=== PATIENT | female | born 1940 | race Caucasian/White ===

== ENCOUNTER 2017-02-08 11:57 | Emergency (ER) | payer MEDICARE, OTHER ==
[2017-02-08 12:09] VITALS: BP 158/73
--- NOTE | 2017-02-08 12:28 | ERNOTE ---
Integumentary HPI - Narrative Date of Service: 02/08/17 - General Presenting Symptoms: rash Time Seen by Provider: 02/08/17 12:14 Source: patient, family, RN/MD, RN notes reviewed, old records Exam Limitations: no limitations - Immun/Allergies/Home Medications Immunizations: IMMUNIZATION HX Immunizations Up to Date Yes History of Influenza Vaccine No Hx Pneumococcal Vaccination Yes Allergies/Adverse Reactions: Allergies Allergy/AdvReac Type Severity Reaction Status Date / Time ampicillin Allergy Verified 02/08/17 12:11 codeine Allergy Verified 02/08/17 12:11 meperidine HCl [From Demerol] Allergy Verified 02/08/17 12:11 simvastatin Allergy Verified 02/08/17 12:11 Sulfa (Sulfonamide Allergy Verified 02/08/17 12:11 Antibiotics) warfarin sodium Allergy Verified 02/08/17 12:11 [From Coumadin] Home Medications: HOME MEDICATIONS Aspirin 81 mg PO DAILY 02/08/17 [Last Taken Unknown] Atenolol [Tenormin] 50 mg PO HS 02/08/17 [Last Taken Unknown] Atorvastatin Calcium [Lipitor] 10 mg PO DAILY 02/08/17 [Last Taken Unknown] Ca/D3/Mag Ox/Zinc/Lieutenant Governor/Twin/Bor [Calcium 600+D3 Plus Caplet] 1 each PO DAILY [Last Taken Unknown] Docusate Sodium [Stool Softener] 50 mg PO DAILY 02/08/17 [Last Taken Unknown] Ferrous Sulfate [Iron] 325 mg PO DAILY 02/08/17 [Last Taken Unknown] Furosemide 20 mg PO DAILY 02/08/17 [Last Taken Unknown] Gabapentin [Neurontin] 300 mg PO TID 02/08/17 [Last Taken Unknown] Levothyroxine Sodium [Synthroid] 100 mcg PO DAILY 02/08/17 [Last Taken Unknown] Losartan Potassium [Cozaar] 50 mg PO DAILY 02/08/17 [Last Taken Unknown] Potassium Bicarbonate/Cit AC [Potassium 25 Meq Tablet Eff] 25 meq PO DAILY 02/08 [Last Taken Unknown] - Pain Pain Score: 0 - History of Present Illness Narrative: 76 y/o female sent to the ED from the walk-in clinic for a rash that began on . She also became ill with frequent diarrhea that day. The diarrhea lasted 3 days. The rash is localized to the dorsal feet and extends to a lesser degree up the left leg to the knee. She denies any pain or itching associated with the rash. Location: Reports: lower extremity, feet Quality: Denies: itching, painful, burning Severity: mild Exposure: Reports: no cause identified Associated Symptoms: Reports: rash, change in skin texture. Denies: blisters, swelling/mass/lumps, edema, fever Prior Treatment: Denies: recently seen Review of Systems - Review of Systems Constitutional: Present: recent illness. Absent: fever, malaise EYE: Present: no symptoms reported ENT: Present: no symptoms reported Respiratory: Absent: shortness of breath, cough Cardiology: Absent: chest pain, edema Gastrointestinal/Abdominal: Absent: nausea, abdominal pain, other - melena Genitourinary: Absent: dysuria, hematuria, decreased urinary output Musculoskeletal: Absent: muscle pain, joint pain, joint swelling Skin: Present: rash, lesions. Absent: lumps, change in color Neurological: Absent: headache, dizziness/light-headedness, weakness, numbness Endocrine: Present: no symptoms reported Hematologic/Lymphatic: Absent: easy bruising, easy bleeding Psych: Present: no symptoms reported - Patient's Past Medical History Patient History - Medical: Anxiety, Depression, GERD, Hypothyroidism, Osteoarthritis Patient History - Cardiac/Respiratory: Hypertension, Hyperlipidemia Patient History - Cancer: Skin Patient History - Surgical Procedures: Back Surgery, Total Hip Replacement, Total Knee Replacement Patient History - Other: None LMP (females 10-50): Menopausal - Social History Living Situations: home Abuse History: No History of abuse Psych History: Hx of Anxiety, Hx of Depression Smoking Status: Never smoker Alcohol Use: none Drug Use: none - Immunizations Immunizations Up to Date: Yes Hx Pneumococcal Vaccination: Yes History of Influenza Vaccine: No Physical Exam - Physical Exam General Appearance: Present: wd/wn, alert, no apparent distress Eye Exam: Normal inspection: bilateral Neck: Present: normal inspection, nontender, supple, full range of motion Respiratory: Present: no respiratory distress, normal breath sounds, no accessory muscle use, lungs clear Cardiovascular/Chest: Present: regular rate, rhythm, no murmur, normal peripheral pulses Extremity Exam: Present: normal inspection, non-tender, normal range of motion, no edema Neurological Exam: Present: alert, oriented, normal mood/affect, no motor/ sensory deficits Skin Exam: Present: normal color, warm/dry, skin rash - red palpable petichiae- like lesions to the dorsum of both feet and to a lesser extent on the anterior left lower leg up to the knee, nontender, no surrounding inflammation ED Progress - Results and Orders Patient's Lab Results:: I have reviewed the patient's lab results. - Vital Signs Patient's Vital Signs:: I have reviewed the patient's vital signs. Vital Signs: Vital Signs 02/08/17 12:04 Temperature 37.0 C Pulse Rate 69 Respiratory 16 Rate Blood Pressure 158/73 O2 Sat by Pulse 95 Oximetry - Progress/Reassessment Chief Complaint: Rash Progress:: Unchanged Plan - Plan Plan: Discussed that lesions appear to be vasculitis - most likely d/t her recent GI illness that has resolved, and that lesions do not require any treatment and should resolve on their own, discussed f/u if symptoms worsen/persist beyond 4 wks. Patient in agreement with plan. Remains asymptomatic aside from lesions. Departure Clinical Impression: Vasculitis limited to skin - Departure Disposition: Home Follow Up Needed Condition: Good Instructions: Vasculitis Additional Instructions: Follow up with your doctor if symptoms worsen or persist beyond 4 weeks
[2017-02-08 12:46] LABS: Hematocrit 40.7 % (37.0-47.0); Hemoglobin 13.6 gm/dL (12.5-16.0); Mean Cell Volume 87.5 fl (78-100); Mean Corpuscular Hemoglobin 29.2 pg (27-31); Mean Corpuscular Hgb Conc 33.4 g/dl (32-36); Mean Platelet Volume 9.6 fl (6.0-9.5); Neutrophil % 51.8 % (42-75.0); Platelet Count 259 K/mm3 (150-450); Red Blood Count 4.65 M/mm3 (4.2-5.4); Red Cell Distribution Width 12.6 % (11.5-14.0); White Blood Count 9.6 K/mm3 (4.0-10.5)
[2017-02-08 12:55] LABS: Urine Bilirubin Negative (NEGATIVE); Urine Blood Negative /ul (NEGATIVE); Urine Ketone Negative (NEGATIVE); Urine Nitrite Negative (NEGATIVE); Urine Protein Negative (NEGATIVE); Urine Specific Gravity 1.015 SP.GR. (1.005-1.010); Urine Urobilinogen Normal (NORMAL)
[2017-02-08 12:56] LABS: Albumin * 3.7 gm/dl (3.4-5.0); Anion Gap 9.6 mmol/L (6.8-13.8); Bilirubin, Total 0.4 mg/dL (0.0-1.1); Ca. Corrected For Albumin 8.8 mg/dL (8.4-10.2); Calcium * 8.9 mg/dL (7.9-10.9); Carbon Dioxide 31.9 mmol/L (24-32.6); Potassium 3.5 mmol/L (3.4-4.6)
[2017-02-08 13:11] LABS: Urine Appearance Clear; Urine Bacteria TRACE; Urine Color Yellow; Urine RBC None Seen /hpf (0-5); Urine WBC 0-5 /hpf (0-5)
--- OUTSIDE RECORDS SUMMARY | 2017-02-08 13:21 | XMS REPORT | Summary of Care ---
:1940 Author Organization [facility] Address [address] [place] [address] Care Team Providers Name Role Phone Jg Archibald Primary Care Physician Encounter Date(s): 02/25/16 - 02/25/16 [facility], [address] [facility] [place], [place] [address] Discharge Diagnosis: Blepharitis of both eyes Discharge Diagnosis: Dry eye syndrome of bilateral lacrimal glands Discharge Diagnosis: Pseudophakia Discharge Disposition: 01 Discharged to Home or Self Care Attending Physician: Eliecer Bell MD Referring Physician: Eliecer Bell MD Vital Signs No data available for this section Problem List Condition Effective Dates Status Health Status Informant HTN (hypertension)(Confirmed) Active Muscle spasticity(Confirmed) Active Allergies, Adverse Reactions, Alerts Substance Reaction Severity Status ampicillin rash Active codeine Nausea Active Coumadin rash Active simvastatin rash Active sulfa drugs rash Active Zocor rash Active Medications Aspir 81 81 mg, Oral, Daily, 0 Refill(s), Start Date: 12/25/15 8:10:00 CDT Start Date: 12/25/15 Status: Orderedatenolol 50 mg oral tablet 1 tab(s), Oral, Daily, # 30 tab(s), 0 Refill(s), Start Date: 12/25/15 8:10:00 CDT Start Date: 12/25/15 Status: Orderedatorvastatin 10 mg oral tablet 1 tab(s), Oral, Daily, # 30 tab(s), 0 Refill(s), Start Date: 12/25/15 8:10:00 CDT Start Date: 12/25/15 Status: OrderedCalcium 600+D Oral, 0 Refill(s), Start Date: 12/25/15 8:10:00 CDT Start Date: 12/25/15 Status: Orderedfurosemide 40 mg oral tablet 1 tab(s), Oral, Daily, # 30 tab(s), 0 Refill(s), Start Date: 12/25/15 8:10:00 CDT Start Date: 12/25/15 Status: OrderedIron-150 1 tab(s), Oral, Daily, 0 Refill(s), Start Date: 12/25/15 8:11:00 CDT Start Date: 12/25/15 Status: Orderedlevothyroxine 100 mcg (0.1 mg) oral tablet 1 tab(s), Oral, Daily, # 30 tab(s), 0 Refill(s), Start Date: 12/25/15 8:09:00 CDT Start Date: 12/25/15 Status: OrderedMaxitrol ophthalmic ointment 1 michelle, Eye-Both, HS, Apply 1/4 inch strip to both lower lids at night before bed., # 3 gm, 6 Refill(s), Start Date: 02/25/16 11:04:51 CDT, Pharmacy: [place], [place] Special Instructions: Apply 1/4 inch strip to both lower lids at night before bed. Start Date: 02/25/16 Status: OrderedMaxitrol ophthalmic ointment 1 michelle, Eye-Both, HS, X 30 days, # 3 gm, 3 Refill(s), Start Date: 12/25/15 8:57: 00 CDT, Pharmacy: [place], [place] Start Date: 12/25/15 Stop Date: 02/25/16 Status: CompletedNeurontin 300 mg oral capsule 1 cap(s), Oral, BID, # 60 cap(s), 0 Refill(s), Start Date: 12/25/15 8:09:00 CDT Start Date: 12/25/15 Status: Orderedpotassium acetate 0 Refill(s), Start Date: 12/25/15 8:11:00 CDT Start Date: 12/25/15 Status: OrderedSurfak Stool Softener 240 mg, Oral, Daily, 0 Refill(s), Start Date: 12/25/15 8:12:00 CDT Start Date: 12/25/15 Status: Ordered Results No data available for this section Immunizations No data available for this section Procedures Procedure Date Related Diagnosis Body Site Phacoemulsification Social History No data available for this section Assessment and Plan No data available for this section
--- OUTSIDE RECORDS SUMMARY | 2017-02-08 13:21 | XMS REPORT | Continuity of Care Document ---
:1940 Author Organization [facility] ([facility]) Address [address] [place] [address] Phone [phone] Care Team Providers Name Role Phone Provider, No-Primary Care Primary Care Provider Unavailable Source Comments This disclosure is being made pursuant to the Care Everywhere program, applicable federal and state laws, and may not contain all informaitonavailable regarding this patient.[facility] ([facility]) Active Allergies and Adverse Reactions Not on File Current Medications Not on file Active Problems Not on file Social History Tobacco Use Types Packs/Day Years Used Date Never Assessed Plan of Care Health Maintenance Due Date Last Done Comments Hepatitis B Vaccine (1 of 3 - Primary Series) 1940 Tdap Vaccine 1953 Lipid Disorder Screening 1960 Td Vaccine 1960 Mammogram 1982 Colonoscopy 11/09/1992 Zoster Vaccine 2002 Osteoporosis Screening (DXA Bone Density) 2007 Pneumococcal Vaccine (1 of 2 - PCV13) 2007 Influenza Vaccine: Seasonal (#1) 04/18/2016 Results from Last 3 Months Not on file
== END 2017-02-08 13:33 | disposition home or self-care (01) ==
LOC: ER 11:57
DX: L95.9 Vasculitis limited to the skin, unspecified (principal); F41.8 Other specified anxiety disorders; K21.9 Gastro-esophageal reflux disease without esophagitis; E03.9 Hypothyroidism, unspecified; I10 Essential (primary) hypertension; E78.5 Hyperlipidemia, unspecified